=== PATIENT | male | born 1995 | race Caucasian/White ===

== ENCOUNTER 2017-09-09 17:03 | Emergency (ER) | payer OTHER ==
[~2017-09-09] VITALS: Ht 165.1 cm; Wt 115.3 kg
[~2017-09-09 17:03] MED LIST: ACET-8386 PO; ATEN50TA8 PO; CIPR500T4 PO; ONDA4ODT1 SL
[2017-09-09 17:08] VITALS: BP 135/83
--- NOTE | 2017-09-09 17:15 | NUR ---
PT AMBULATES BACK TO THE LOBBY
--- NOTE | 2017-09-09 17:27 | NUR ---
PT AMBULATES TO BED 9
--- NOTE | 2017-09-09 17:30 | NUR ---
PATIENT PRESENTS TO ED FOR PERIUMBILICAL PAIN AND PRESSURE X 3 DAYS. PATIENT STATES HE HAS AN ABCESS AND OCASSIONALY HAS PURULENT DRAINAGE. PATIENT STATES PAIN IS 9/10. PATIENT APPEARS TO BE IN SEVERE PAIN AND IS GAURDING ABDOMEN. PATIENT HAD A PICTURE OF THE DRAINAGE THAT HE SHOWED THE DR. SKIN AROUND THE AREA IS PINK AND TIGHT AND TENDER TO TOUCH; AAOX4 WITH EVEN AND STEADY GAIT; LUNGS CLEAR BL; HR EVEN AND REGULAR; PT DENIES ANY FEVER, CP, SOB, OR COUGH AT THIS TIME; VSS; PATIENT POSITIONED FOR COMFORT; HOB ELEVATED; BEDRAILS UP X1; BED DOWN. ER MD MADE AWARE OF PT STATUS.
[2017-09-09] MEDS ORDERED: oxyCODONE/APAP 5/325 MG 1 TAB TAB PO ONE (18:00)
[2017-09-09 18:04] LABS: ANION GAP 13.8 (8-16); CARBON DIOXIDE 26.9 mmol/L (21-32); CREATININE 1.1 mg/dL (0.7-1.3); POTASSIUM 3.7 mmol/L (3.5-5.1)
[2017-09-09 18:10] LABS: ALBUMIN 3.9 g/dL (3.4-5.0); TOTAL BILIRUBIN 0.4 mg/dL (0.0-1.0)
[2017-09-09 18:25] LABS: BASOPHILS % (AUTO) 0.3 % (0.0-2.0); EOSINOPHILS # (AUTO) 0.1 K/uL (0-0.4); EOSINOPHILS % (AUTO) 1.4 % (0.0-4.0); HEMOGLOBIN 14.8 g/dL (12.0-18.0); LYMPHOCYTES % (AUTO) 40.3 % (20.5-51.1); MEAN CORPUSCULAR HEMOGLOBIN 28 pg (27-31); MEAN CORPUSCULAR HGB CONC 34 g/dL (33-37); MEAN CORPUSCULAR VOLUME 84.3 fL (80-94); MONOCYTES # (AUTO) 0.5 K/uL (0.8-1.0); MONOCYTES % (AUTO) 5.2 % (1.7-9.3); NEUTROPHILS # (AUTO) 5.2 K/uL (1.8-7.7); NEUTROPHILS % (AUTO) 52.8 % (42.2-75.2); PLATELET COUNT (AUTO) 238 K/uL (140-450); RED BLOOD CELL COUNT(AUTO) 5.23 MIL/uL (4.20-6.10); RED CELL DISTRIBUTION WIDTH 14.4 % (11.6-13.7); WHITE BLOOD COUNT (AUTO) 9.8 K/uL (4.8-10.8)
[2017-09-09 18:43] LABS: APPEARANCE,URINE CLEAR (CLEAR); BILIRUBIN,URINE NEGATIVE (NEGATIVE); BLOOD, URINE NEGATIVE (NEGATIVE); COLOR,URINE YELLOW (YELLOW); LEUKOCYTE ESTERASE ,URINE NEGATIVE (NEGATIVE); NITRITE, URINE NEGATIVE (NEGATIVE); PH,URINE 5.5 (5.0-9.0); UGLUCOSE NEGATIVE (NEGATIVE)
--- NOTE | 2017-09-09 19:09 | NUR ---
RECEIVED REPORT FROM CONSTANZA RN, PT AWATING RESULTS IN NO APPARENT DISTRESS, NO C/O AT THIS TIME
--- NOTE | 2017-09-09 19:09 | NUR ---
REPORT GIVEN TO RIVERA (CATHERINE)
[2017-09-09] MEDS ORDERED: LIDOCAINE 1% 500 MG/50 ML VIAL INJ SCH (19:30)
--- NOTE | 2017-09-09 19:40 | NUR ---
JUAN DIEGO PULLED AND PLACED AT BEDSIDE FOR DR DESAI
[2017-09-09] MEDS ORDERED: LIDOCAINE MPF 1% - **ER/OR** 5 ML ONE (19:41)
[2017-09-09] MEDS ORDERED: BACITRACIN OINT 500 UNITS/GM PKT TP ONE (19:59)
--- NOTE | 2017-09-09 20:00 | NUR ---
UMBILICAL WOUND DRESSED WITH BACITRAICIN, GAUZE AND ADHESIVE ISLAND WOUND DRESSING PER DR. DESAI
[2017-09-09 20:18] VITALS: BP 132/84
--- NOTE | 2017-09-09 20:18 | NUR ---
Patient discharged with v/s stable. Written and verbal after care instructions given and explained. Patient alert, oriented and verbalized understanding of instructions. Ambulatory with steady gait. All questions addressed prior to discharge. ID band removed. Patient advised to follow up with PMD. Rx of CEPHALEXIN 500MG , NORCO 5MG/325MG, BACTRIM DS 800MG-160MG given. Patient educated on indication of medication including possible reaction and side effects. Opportunity to ask questions provided and answered.
== END 2017-09-09 20:18 | disposition home or self-care (01) ==
LOC: MED 17:03
DX: L02.216 Cutaneous abscess of umbilicus (principal); I10 Essential (primary) hypertension; Z90.89 Acquired absence of other organs; Z88.1 Allergy status to other antibiotic agents; Z88.8 Allergy status to other drugs, medicaments and biological substances
CPT/HCPCS: 10060; 36415; 80053; 81003; 82150; 83690; 85025; 99284; J2001

== ENCOUNTER 2017-09-25 | Emergency (ER) | payer OTHER ==
[~2017-09-25] VITALS: Ht 165.1 cm; Wt 111.1 kg
[2017-09-25 00:01] VITALS: BP 167/72
--- NOTE | 2017-09-25 00:10 | NUR ---
PT AMBULATED TO BED #7
--- NOTE | 2017-09-25 00:10 | NUR ---
PATIENT PRESENTS TO ED WITH GENERALIZED SHOCKING PAIN THROUGHOUT BODY AND CHEST PAIN X30 MIN, DESCRIBED SHOCKING PAIN. PT DENIES N/V/D; SKIN IS PINK/WARM/DRY; AAOX4 WITH EVEN AND STEADY GAIT; LUNGS CLEAR BL; HR EVEN AND REGULAR; PT DENIES ANY FEVER, CP, SOB, OR COUGH AT THIS TIME; PATIENT STATES PAIN OF 7/10 AT THIS TIME; VSS; PATIENT POSITIONED FOR COMFORT; HOB ELEVATED; BEDRAILS UP X2; BED DOWN. ER MD MADE AWARE OF PT STATUS. CONTINUE TO MONITOR.
[2017-09-25] MEDS ORDERED: ENALAPRILAT 2.5 MG/2 ML VIAL IVP ONE (00:55)
[2017-09-25 01:12] LABS: BASOPHILS % (AUTO) 0.5 % (0.0-2.0); EOSINOPHILS # (AUTO) 0.1 K/uL (0-0.4); EOSINOPHILS % (AUTO) 1.3 % (0.0-4.0); HEMATOCRIT 44.1 % (36-52); HEMOGLOBIN 14.8 g/dL (12.0-18.0); LYMPHOCYTES # (AUTO) 4.2 K/uL (2.0-11.5); LYMPHOCYTES % (AUTO) 43.7 % (20.5-51.1); MEAN CORPUSCULAR HEMOGLOBIN 28 pg (27-31); MEAN CORPUSCULAR HGB CONC 34 g/dL (33-37); MEAN CORPUSCULAR VOLUME 84.4 fL (80-94); MONOCYTES # (AUTO) 0.6 K/uL (0.8-1.0); MONOCYTES % (AUTO) 5.8 % (1.7-9.3); NEUTROPHILS # (AUTO) 4.7 K/uL (1.8-7.7); NEUTROPHILS % (AUTO) 48.7 % (42.2-75.2); PLATELET COUNT (AUTO) 242 K/uL (140-450); RED BLOOD CELL COUNT(AUTO) 5.23 MIL/uL (4.20-6.10); RED CELL DISTRIBUTION WIDTH 14.1 % (11.6-13.7); WHITE BLOOD COUNT (AUTO) 9.7 K/uL (4.8-10.8)
[2017-09-25 01:30] LABS: ANION GAP 11.9 (8-16); CARBON DIOXIDE 28.6 mmol/L (21-32); CREATININE 1.4 mg/dL (0.7-1.3); POTASSIUM 3.5 mmol/L (3.5-5.1)
[2017-09-25 01:33] LABS: CHOL/HDL RATIO 3.9 (1-4.5)
[2017-09-25 01:33] LABS: BARBITURATE, URINE NEG. ng/ml (NEG <=200); BENZODIAZEPINE, URINE NEG. ng/mL (NEG <=200); CANNABINOID, URINE POS. ng/mL (NEG <=50); COCAINE, URINE NEG. ng/mL (NEG <=300); OPIATE, URINE NEG. ng/mL (NEG <=2000); PHENCYCLIDINE SCREEN,URINE NEG. ng/mL (NEG <=25)
[2017-09-25 01:37] LABS: TOTAL BILIRUBIN 0.5 mg/dL (0.0-1.0)
[2017-09-25 01:44] LABS: CREATINE KINASE MB 2.3 ng/mL (0-3.6)
[2017-09-25 02:23] VITALS: BP 116/69
--- NOTE | 2017-09-25 02:23 | NUR ---
Patient discharged with v/s stable. Written and verbal after care instructions given and explained. Patient alert, oriented and verbalized understanding of instructions. Ambulatory with steady gait. All questions addressed prior to discharge. ID band removed. Patient advised to follow up with PMD. Rx of LISINOPRIL given. Patient educated on indication of medication including possible reaction and side effects. Opportunity to ask questions provided and answered.
== END 2017-09-25 02:23 | disposition home or self-care (01) ==
LOC: MED
DX: R07.9 Chest pain, unspecified (principal); I10 Essential (primary) hypertension; Z88.1 Allergy status to other antibiotic agents; Z88.8 Allergy status to other drugs, medicaments and biological substances; Z90.49 Acquired absence of other specified parts of digestive tract; Z91.041 Radiographic dye allergy status; Z79.899 Other long term (current) drug therapy
CPT/HCPCS: 36415; 71045; 80053; 80061; 80305; 81002; 82550; 82553; 83880; 84484; 85025; 85379; 93005; 96374; 99285; J3490

== ENCOUNTER 2017-12-13 16:42 | Emergency (ER) | payer OTHER ==
[~2017-12-13] VITALS: Ht 165.1 cm; Wt 111.1 kg
[2017-12-13 16:52] VITALS: BP 123/72
--- NOTE | 2017-12-13 16:57 | NUR ---
PT AMBULATES TO BED 8
--- NOTE | 2017-12-13 17:00 | NUR ---
22/m bib FAMILY C/O GUZMAN, LEFT SIDED CHEST WALL PAIN AFTER EATING A BIG MAC TODAY. INTERMITTENT SHOCKING PAIN THAT RADIATES TO RIGHT LEG. REPORTS BEING SENSITIVE TO THE PICKLES IN THE SAUCE IN BURGER. MED HX: MS, HTN, SZ. DENIES N/V/D; SKIN IS PINK/WARM/DRY; AAOX4 WITH EVEN AND STEADY GAIT; LUNGS CLEAR BL; PT DENIES ANY FEVER, SOB, OR COUGH AT THIS TIME; PATIENT STATES PAIN OF 9/10 AT THIS TIME; PATIENT POSITIONED FOR COMFORT; HOB ELEVATED; BEDRAILS UP X2; BED DOWN. ER MD MADE AWARE OF PT STATUS.
--- NOTE | 2017-12-13 17:21 | NUR ---
Patient being evaluated by DR WEINSTEIN at bedside.
[2017-12-13] MEDS ORDERED: ONDANSETRON 4 MG ODT PO ONE (17:55)
[2017-12-13] MEDS ORDERED: KETOROLAC 60 MG/2 ML VIAL IM ONE (17:55)
--- NOTE | 2017-12-13 19:14 | NUR ---
Pt report given to MORENA LINDSAY . Transfer of care at this time.
[2017-12-13 19:25] VITALS: BP 116/64
--- NOTE | 2017-12-13 19:25 | NUR ---
Patient discharged with v/s stable. Written and verbal after care instructions given and explained. Patient verbalized understanding. Ambulatory with steady gait. All questions addressed prior to discharge. Advised to follow up with PMD.
== END 2017-12-13 19:25 | disposition home or self-care (01) ==
LOC: MED 16:42
DX: R07.89 Other chest pain (principal); R11.0 Nausea; R51 Headache; I10 Essential (primary) hypertension; Z90.89 Acquired absence of other organs; Z90.49 Acquired absence of other specified parts of digestive tract; Z88.1 Allergy status to other antibiotic agents; Z88.8 Allergy status to other drugs, medicaments and biological substances; Z79.1 Long term (current) use of non-steroidal anti-inflammatories (NSAID); Z79.899 Other long term (current) drug therapy
CPT/HCPCS: 81002; 93005; 96372; 99283; J1885; S0119

== ENCOUNTER 2018-08-28 21:10 | Emergency (ER) | payer OTHER ==
[~2018-08-28] VITALS: Ht 165.1 cm; Wt 111.1 kg
[~2018-08-28 21:10] MED LIST changes: +ONDA-24 SL; -ONDA4ODT1 SL
[2018-08-28 21:12] VITALS: BP 147/83
--- NOTE | 2018-08-28 21:12 | NUR ---
TO BED # 04 AMBULATORY, REPORT GIVEN TO NAM LINDSAY
--- NOTE | 2018-08-28 21:17 | NUR ---
PT AMBULATED TO ER BED 4
--- NOTE | 2018-08-28 21:20 | NUR ---
PT STATES SUDDEN ONSET OF RIGHT KNEE PAIN WALKING UP STAIRS X3 DAYS, DENIES TRAUMA. MILD SWELLING, NO REDNESS, DISCHARGE OR DEFORMITY NOTED TO SIGHT AT THIS TIME. STATES HE TOOK TRAMADOL 50 MG AT HOME W/O RELIEF. PT STATES HE IS ONLY ABLE TO GET AN ERECTION FOR ABOUT 3 MINUTES BUT AFTER EJACULATION CAN NOT GET ANOTHER ERECTION FOR 20 MINUTES, THIS HAS BEEN HAPPENING FOR "MONTHS"; DENIES BURNING, ITHCING, OR FOUL SMELLING ODOR. WOULD LIKE TO SPEAK W/ DOCTOR ABOUT MEDICATION FOR KEEPING HIS ERECTION FOR LONGER. PMH: JUSTO, MS, HTN, PHEOCROMOSITOMA --PT STATES HE HAS BEEN DX BY VARIOUS DOCTORS W/ ABOVE MEDICAL HX BUT HAS NEVER BEEN PRESCRIBED ANY MEDICATION. RX: TRAMADOL
--- NOTE | 2018-08-28 21:25 | NUR ---
X-RAY AT BEDSIDE.
--- NOTE | 2018-08-28 21:40 | NUR ---
DR. SNELL AT [facility] FOR EVALUATION.
[2018-08-28] MEDS ORDERED: HYDROcodone/APAP 5/325 MG 1 TAB TAB PO ONE (22:00)
[2018-08-28 22:25] VITALS: BP 145/80
--- NOTE | 2018-08-28 22:25 | NUR ---
\Patient discharged with v/s stable. Written and verbal after care instructions given and explained. Patient alert, oriented and verbalized understanding of instructions. Ambulatory with steady gait. All questions addressed prior to discharge. ID band removed. Patient advised to follow up with PMD. Rx of ibuprofen and norco given. Patient educated on indication of medication including possible reaction and side effects. Opportunity to ask questions provided and answered.
== END 2018-08-28 22:25 | disposition home or self-care (01) ==
LOC: MED 21:10
DX: M25.561 Pain in right knee (principal); I10 Essential (primary) hypertension; Z79.899 Other long term (current) drug therapy; Z88.1 Allergy status to other antibiotic agents; Z88.8 Allergy status to other drugs, medicaments and biological substances
CPT/HCPCS: 73562; 99283; Q0092